=== PATIENT | female | born 1940 ===

== ENCOUNTER 2017-10-24 07:12 | Emergency (ER) | payer SELFPAY ==
[2017-10-24] MEDS ORDERED: Sodium Chloride 0.9% 1,000 ML IV ONE (07:48)
--- NOTE | 2017-10-24 07:49 | C.PDOC ---
History Of Present Illness 76 y/o female presents to ED for evaluation of gradual onset LLQ abdominal pain for "few days". As per patient pain is worsen since today AM , constant and associated with nausea and few episodes of non-bilious, non-bloody vomiting. Otherwise, Patient denies fever, recent illness, antibiotic use, sore throat, CP , SOB, cough, dyspnea, palpitation, diarrhea, melena, UTI symptoms, back pain. Ambulate to ED, not in any apparent distress. Time Seen by Provider: 10/24/17 07:31 Chief Complaint (Nursing): Abdominal Pain History Per: Patient History/Exam Limitations: no limitations Onset/Duration Of Symptoms: Days Current Symptoms Are (Timing): Still Present Location Of Pain/Discomfort: LLQ Past Medical History Reviewed: Historical Data, Nursing Documentation, Vital Signs Vital Signs: Last Vital Signs Temp 98.3 F 10/24/17 11:55 Pulse 76 10/24/17 11:55 Resp 20 10/24/17 11:55 BP 123/74 10/24/17 11:55 Pulse Ox 97 10/24/17 13:15 - Medical History PMH: Asthma, HTN Surgical History: No Surg Hx Family History: States: No Known Family Hx - Social History Hx Alcohol Use: No Hx Substance Use: No - Immunization History Hx Tetanus Toxoid Vaccination: No Hx Influenza Vaccination: No Hx Pneumococcal Vaccination: No Review Of Systems Constitutional: Negative for: Fever, Chills Gastrointestinal: Positive for: Nausea, Vomiting, Abdominal Pain. Negative for : Diarrhea, Constipation Genitourinary: Negative for: Dysuria, Hematuria Skin: Negative for: Rash Physical Exam - Physical Exam Appears: Well, Non-toxic, No Acute Distress Skin: Normal Color, Warm, Dry, No Rash Head: Normacephalic Eye(s): bilateral: PERRL Nose: No Flaring, No Discharge Oral Mucosa: Moist, No Drooling Neck: Trachea Midline, Supple Cardiovascular: Rhythm Regular Respiratory: No Decreased Breath Sounds, No Accessory Muscle Use, No Stridor, No Wheezing Gastrointestinal/Abdominal: Soft, Tenderness (LLQ tenderness, mild), No Distention, No Guarding Back: No CVA Tenderness, No Vertebral Tenderness, No Paraspinal Tenderness Extremity: Normal ROM, No Deformity, No Swelling Neurological/Psych: Oriented x3, Normal Speech, Normal Motor, Normal Sensation, Normal Reflexes ED Course And Treatment - Laboratory Results Result Diagrams: 10/24/17 07:53 10/24/17 07:53 O2 Sat by Pulse Oximetry: 97 (RA) Pulse Ox Interpretation: Normal - CT Scan/US CT abd/pelvis Other Rad Studies (CT/US): Radiology Report Reviewed CT/US Interpretation: reator : Tomy Gaytan MD. Dictator : Tomy Gaytan MD. Maid Supervisor : Automotive Accessory Installer : Tomy Gaytan MD. Approver2 : Report Date : 10/24/2017 11:59:07. My Comment : . PROCEDURE: CT Abdomen and Pelvis with contrast. HISTORY: abd pain. COMPARISON: None. TECHNIQUE: Following oral and intravenous contrast administration, a CT examination of the abdomen and pelvis performed from the domes of the diaphragms to the symphysis pubis with reformatted datasets provided not only axial but also sagittal and coronal series. Contrast dose: Visipaque 320, 100 cc. Radiation dose: Total exam DLP = 330.60 mGy-cm. This CT exam was performed using one or more of the following dose reduction techniques: Automated exposure control, adjustment of the mA and/or kV according to patient size, and/or use of iterative reconstruction technique. FINDINGS: LOWER THORAX: Pacemaker leads noted right heart. Small hiatal hernia. LIVER: There 2-3 a tiny lucencies scattered in the liver too small to characterize. The liver is otherwise unremarkable appearing. GALLBLADDER AND BILE DUCTS: Unremarkable. PANCREAS: Unremarkable. No gross lesion or ductal dilatation. SPLEEN: Unremarkable. ADRENALS: Unremarkable. No mass. KIDNEYS AND URETERS: There is gross hydronephrosis (grade 5) at the left kidney with prominent left hydroureter identified. Mild left perinephric reaction is appreciated. Given the prominent hydronephrosis, this is felt to be a chronic finding with possible acute worsening or even potential pyelonephritis superimposed over hydronephrosis given left perinephric reaction. A spindle shaped calculus identified at the distal left ureter less than 1 cm from the region of the ureter vessel junction measuring 6.1 x 1.6 mm with a left UPJ punctate calculus measuring 4.1 x 2.5 mm which is probably nonobstructive (UPJ calculus). No definite solid left renal mass. A 2 mm punctate intrarenal calculus that is identified at the midpole left kidney with an additional calculus either of the wall of a large left lower pole renal cyst (7.3 x 9.0 x 7.3 cm) or within the parenchyma. No right hydronephrosis. A 3.9 x 3.5 cm simple cyst seen at the mid to lower pole right kidney with 3 additional sub cm lucencies scattered throughout the cortex of the right kidney too small to characterize. No radiodense urolithiasis right kidney or definitive solid right renal mass. VASCULATURE: A non aneurysmal atherosclerotic abdominal aorta is appreciated. BOWEL: There is some fecalization of the terminal ileum without bowel obstruction. Mild fecal loading is seen throughout various large-bowel segments with occasional left colonic diverticula. No definite diverticulitis. . APPENDIX: Normal appendix. PERITONEUM: Unremarkable. No free fluid. No free air. LYMPH NODES: Unremarkable. No enlarged lymph nodes. BLADDER: Unremarkable. REPRODUCTIVE: Unremarkable. BONES: No acute fracture. OTHER FINDINGS: None. IMPRESSION: 1. Gross left hydronephrosis and hydroureter are appreciated likely as a function of distal left ureteral obstruction as a 6.1 mm calculus ups is seen at the distal left ureter approaching the left ureter vessel junction as discussed above. A 4.1 mm left UPJ calculus is identified as well which is felt to be nonobstructive. One or 2 punctate intrarenal calculi identified in the left kidney. Mild left perinephric reaction is appreciated which may reflect interval acute worsening of advanced, chronic left hydronephrosis. Left pyelonephritis is not excluded either. 2. Minimally complex cyst lower pole left kidney 9.0 cm greatest dimension. A simple cyst identified at the mid to lower pole right kidney with multiple small parenchymal lucencies too small to characterize at the right kidney as well. 3. Limited left colonic diverticulosis without diverticulitis. 4. Other lesser findings as discussed above. Progress Note: On re-eval, pt is afebrile, hemodynamicaly stable. NOn-toxic. Pt reports, moderate improvement in pain. Tolerate po well in ED. PulsEOx 99% RA. ENT: no acute findings. neck: SUpple, (-) meningeal sign. Lungs: CTA B/L , BS equal B/L. ABd: benign, (-) guarding, (-) rebound, (-) localized tenderness. Neurologicaly intact. Bood work review, no acute finidngs. UA (+ ) WBC, RBC. CT abd/pelvis review (+) left sided gross hydronephrosis and hydroureter, 6.1mm calculus distal left ureter. Pt has clinical findings c/w LLQ pain sec. to obstructive Left distal ureter stone. Pt is currently asymptomatic. Pt advised. ref. to f/u with PMD, Urology in 2-3 dyas for re- evaluation. return [facility] ED if any worsening or new changes. Disposition Counseled Patient/Family Regarding: Studies Performed, Diagnosis, Need For Followup, Rx Given - Disposition Referrals: [facility] [Outside] Julio Cesar Flores Jr., MD [Staff Provider] - Disposition: HOME/ ROUTINE Disposition Time: 12:02 Condition: STABLE Additional Instructions: Encourage fluids Urine strain Take medication as prescribed, pain medication as need Follow up with PMD, Urology in 2-3 days for re-evaluation. return if any new changes. Prescriptions: Ciprofloxacin [Cipro] 1 tab PO BID #14 tab Tamsulosin [Flomax] 0.4 mg PO DAILY #14 cap traMADol [Ultram] 50 mg PO TID #7 tab Instructions: Kidney Stones in Adults Forms: [facility] (Mauritanian) Print Language: CANADIAN - Clinical Impression Clinical Impression: Kidney stone - PA / CHILDREN'S AIDE / Resident Statement MD/DO has reviewed & agrees with the documentation as recorded. - Scribe Statement The provider has reviewed the documentation as recorded by the Shannan Short All medical record entries made by the Shannan were at my direction and personally dictated by me. I have reviewed the chart and agree that the record accurately reflects my personal performance of the history, physical exam, medical decision making, and the department course for this patient. I have also personally directed, reviewed, and agree with the discharge instructions and disposition.
[2017-10-24 08:00] LABS: BASO % 0.3 % (0.0-2.0); EOS % 0.2 % (0.0-4.0); LYMPH # 0.9 K/uL (1.0-4.3); LYMPH % 8.3 % (20.0-40.0); MEAN CELL VOLUME 85.6 fL (81.0-99.0); MEAN CORPUSCULAR HEMOGLOBIN 30.1 pg (27.0-31.0); MEAN CORPUSCULAR HGB CONC 35.1 g/dL (33.0-37.0); MEAN PLATELET VOLUME 8.1 fL (7.2-11.7); MONO # 0.6 K/uL (0.0-0.8); MONO % 5.7 % (0.0-10.0); NEUT # 9.6 K/uL (1.8-7.0); NEUT % 85.5 % (50.0-75.0); PLATELET COUNT 265 K/uL (130-400); RBC 4.65 Mil/uL (3.80-5.20); RED CELL DISTRIBUTION WIDTH 15.1 % (11.5-14.5); WHITE BLOOD COUNT 11.2 K/uL (4.8-10.8)
[2017-10-24] MEDS ORDERED: Sodium Chloride 0.9% 1,000 ML ONE (08:00)
[2017-10-24 08:16] LABS: ALB/GLOB RATIO 1.3 (1.0-2.1); ALBUMIN 4.6 g/dL (3.5-5.0); ALT/SGPT 12 U/L (9-52); AST/SGOT 25 U/L (14-36); BLOOD UREA NITROGEN 20 mg/dL (7-17); CALCIUM 9.3 mg/dl (8.6-10.4); GFR AFRICAN-AMERICAN > 60; GFR NON-AFRICAN AMERICAN > 60; LIPASE 100 U/L (23-300)
[2017-10-24] MEDS ORDERED: Iohexol 240 (50 ml) PO ONE (08:26)
[2017-10-24] MEDS ORDERED: Iohexol 240 (50 ml) ONE (08:30)
[2017-10-24 08:37] LABS: LYMPHOCYTE 9 % (20-40); MONOCYTE 6 % (0-10); NEUTROPHIL 85 % (50-75); PLATELET ESTIMATE NORMAL (NORMAL); TOTAL CELLS COUNTED 100
[2017-10-24 08:38] LABS: ANISOCYTOSIS SLIGHT; OVALOCYTES SLIGHT
[2017-10-24 09:06] LABS: SQUAMOUS EPITHIAL < 1 /hpf (0-5); URINE BILIRUBIN NEGATIVE (NEGATIVE); URINE BLOOD 2+ (NEGATIVE); URINE CLARITY Clear (Clear); URINE COLOR Yellow (YELLOW); URINE GLUCOSE (UA) NORMAL (Normal); URINE LEUKOCYTE ESTERASE NEG Leu/uL (Negative); URINE PROTEIN NEGATIVE (NEGATIVE); URINE UROBILINOGEN NORMAL mg/dL (0.2-1.0)
[2017-10-24] MEDS ORDERED: Iodixanol 320 MG/ML 100 ML BOTTLE IV ONE (09:49)
[2017-10-24 11:56] VITALS: BP 123/74; PULSE 76; RESP 20; TEMP 98.3
--- NOTE | 2017-10-24 12:01 | CT ---
PROCEDURE: CT Abdomen and Pelvis with contrast HISTORY: abd pain COMPARISON: None. TECHNIQUE: Following oral and intravenous contrast administration, a CT examination of the abdomen and pelvis performed from the domes of the diaphragms to the symphysis pubis with reformatted datasets provided not only axial but also sagittal and coronal series. Contrast dose: Visipaque 320, 100 cc Radiation dose: Total exam DLP = 330.60 mGy-cm. This CT exam was performed using one or more of the following dose reduction techniques: Automated exposure control, adjustment of the mA and/or kV according to patient size, and/or use of iterative reconstruction technique. FINDINGS: LOWER THORAX: Pacemaker leads noted right heart. Small hiatal hernia. LIVER: There 2-3 a tiny lucencies scattered in the liver too small to characterize. The liver is otherwise unremarkable appearing. GALLBLADDER AND BILE DUCTS: Unremarkable. PANCREAS: Unremarkable. No gross lesion or ductal dilatation. SPLEEN: Unremarkable. ADRENALS: Unremarkable. No mass. KIDNEYS AND URETERS: There is gross hydronephrosis (grade 5) at the left kidney with prominent left hydroureter identified. Mild left perinephric reaction is appreciated. Given the prominent hydronephrosis, this is felt to be a chronic finding with possible acute worsening or even potential pyelonephritis superimposed over hydronephrosis given left perinephric reaction. A spindle shaped calculus identified at the distal left ureter less than 1 cm from the region of the ureter vessel junction measuring 6.1 x 1.6 mm with a left UPJ punctate calculus measuring 4.1 x 2.5 mm which is probably nonobstructive (UPJ calculus). No definite solid left renal mass. A 2 mm punctate intrarenal calculus that is identified at the midpole left kidney with an additional calculus either of the wall of a large left lower pole renal cyst (7.3 x 9.0 x 7.3 cm) or within the parenchyma. No right hydronephrosis. A 3.9 x 3.5 cm simple cyst seen at the mid to lower pole right kidney with 3 additional sub cm lucencies scattered throughout the cortex of the right kidney too small to characterize. No radiodense urolithiasis right kidney or definitive solid right renal mass. VASCULATURE: A non aneurysmal atherosclerotic abdominal aorta is appreciated. BOWEL: There is some fecalization of the terminal ileum without bowel obstruction. Mild fecal loading is seen throughout various large-bowel segments with occasional left colonic diverticula. No definite diverticulitis. . APPENDIX: Normal appendix. PERITONEUM: Unremarkable. No free fluid. No free air. LYMPH NODES: Unremarkable. No enlarged lymph nodes. BLADDER: Unremarkable. REPRODUCTIVE: Unremarkable. BONES: No acute fracture. OTHER FINDINGS: None. IMPRESSION: 1. Gross left hydronephrosis and hydroureter are appreciated likely as a function of distal left ureteral obstruction as a 6.1 mm calculus ups is seen at the distal left ureter approaching the left ureter vessel junction as discussed above. A 4.1 mm left UPJ calculus is identified as well which is felt to be nonobstructive. One or 2 punctate intrarenal calculi identified in the left kidney. Mild left perinephric reaction is appreciated which may reflect interval acute worsening of advanced, chronic left hydronephrosis. Left pyelonephritis is not excluded either. 2. Minimally complex cyst lower pole left kidney 9.0 cm greatest dimension. A simple cyst identified at the mid to lower pole right kidney with multiple small parenchymal lucencies too small to characterize at the right kidney as well. 3. Limited left colonic diverticulosis without diverticulitis. 4. Other lesser findings as discussed above.
[2017-10-24 12:14] VITALS: O2SAT 97
== END 2017-10-24 12:30 | disposition home or self-care (01) ==
LOC: C.ER 07:12
DX: N20.0 Calculus of kidney (principal); I10 Essential (primary) hypertension
CPT/HCPCS: 74177; 80053; 81001; 83690; 85025; 87086; 96361; 96374; 96375; 99285; J1885; J2405; J7030; Q9966; Q9967